=== PATIENT | male | born 2000 | race Caucasian/White ===

== ENCOUNTER 2020-04-13 13:50 | Emergency (ER) | payer MEDICAID ==
[~2020-04-13] VITALS: Ht 188 cm; Wt 67.9 kg
[~2020-04-13 13:50] MED LIST: NO HOME MEDS
--- NOTE | 2020-04-13 14:50 | NUR ---
Break relief for primary nurse. Pt is awaiting assessment by ED provider. Pt's [id number] phoned for an update. Patient gave verbal permission to speak with the Jfuvcpm-ok-rro Sang Niki. He left a phone number where he can be reached, .
[2020-04-13] MEDS ORDERED: LORazepam 1 MG tablet PO ONE (15:20)
--- NOTE | 2020-04-13 15:45 | NUR ---
PT CAME OVER FROM FAST TRACK. PT EXCORTED BY SERCUITY. PT CHANGED INTO GREEN SCRUBS AND UA WAS OBTAINED AND SENT. ATTEMPTED TO CALL MOM FOR PT HX BUT NO ONE ANSWERED THE PHONE
[2020-04-13 15:57] LABS: CLARITY,URINE CLEAR (Clear); COLOR,URINE YELLOW (Yellow); GLUCOSE, URINE NEGATIVE (Neg); KETONES,URINE NEGATIVE (Neg); LEUKOCYTE ESTERASE ,URINE NEGATIVE (Neg); NITRITES, URINE NEGATIVE (Neg); OCCULT BLOOD,URINE NEGATIVE (Neg); PROTEIN,URINE NEGATIVE (Neg); UROBILINOGEN,URINE 0.2 E.U/dL (0.2-1.0)
[2020-04-13 15:58] LABS: UA COLLECTION TYPE CLN CATCH MIDSTREAM
[2020-04-13 16:02] LABS: URINE AMPHETAMINE SCREEN NEGATIVE (Neg); URINE BARBITUATE SCREEN NEGATIVE (Neg); URINE BENZODIAZEPINES SCREEN NEGATIVE (Neg); URINE CANNABINOID SCREEN NEGATIVE (Neg); URINE COCAINE SCREEN NEGATIVE (Neg); URINE METHADONE SCREEN NEGATIVE (Neg); URINE OPIATE SCREEN NEGATIVE (Neg); URINE PHENCYCLIDINE SCREEN NEGATIVE (Neg)
--- NOTE | 2020-04-13 16:29 | NUR ---
PT HAS GIVEN VERBAL CONSENT TO SPEAK WITH MOTHER. MOM STATES PT HAS BEEN DX WITH [facility]. STARTED WHILE HE WAS A MINOR SO PATIENT WAS FOLLOWED BY [facility]. PT HAS NOT HAD ANY EPISODES IN 2 YEARS AND DURING THAT TIME PATIENT AGED OUT OF HIS MENTAL HEALTH PROVIDERS SERVICES NOW THAT HE IS 20 AND PT HAS NOT FOLLOWED UP WITH A NEW MENTAL HEALTH SERVICE. HOWEVER YESTERDAY MOM CALLED [facility] AND THEY CAME OUT AND SAW THE PATIENT SO CARE MAY HAVE BEEN STARTED. MOTHER STATES PT HAS NEVER USED DRUGS OR ALCOHOL. SHE STATES THE PATIENT STOPPED TAKING HIS MEDS CAUSE OF THE DROWSY SIDE EFFECTS. PT HAS A GREAT FAMILY SUPPORT SYSTEM AND THEY ARE WILLING TO HELP HIM ANYWAY POSSIBLE.
[2020-04-13 16:47] LABS: BASOPHILS % (AUTO) 0.6 % (0-1); EOSINOPHILS # (AUTO) 0.1 X10'3 (0-0.9); LYMPHOCYTES # (AUTO) 1.5 X10'3 (1.1-4.8); LYMPHOCYTES % (AUTO) 18.2 % (21-51); MEAN CORPUSCULAR HEMOGLOBIN 30.6 PG (27.0-31.0); MEAN PLATELET VOLUME 7.7 FL (7.4-10.4); MONOCYTES # (AUTO) 1.1 X10'3 (0-0.9); NEUTROPHILS # (AUTO) 5.6 X10'3 (1.8-7.7)
[2020-04-13 16:49] LABS: BASOPHILS # (AUTO) 0.1 X10'3 (0-0.2); HEMATOCRIT 46.1 % (42.0-52.0); MEAN CORPUSCULAR HGB CONC 34.8 g/dL (33.0-36.5); MEAN CORPUSCULAR VOLUME 87.9 FL (78-98); MONOCYTES % (AUTO) 13.4 % (2-12); NEUTROPHILS % (AUTO) 66.8 % (42-75); PLATELET COUNT 209 X10'3 (140-440); RED BLOOD COUNT 5.25 X10'6 (4.70-6.10); RED CELL DISTRIBUTION WIDTH 12.7 % (11.5-14.5); WHITE BLOOD COUNT 8.3 X10'3 (4.5-11.0)
[2020-04-13 16:58] LABS: ALANINE AMINOTRANSFERASE 33 U/L (12-78); ALBUMIN 4.5 G/DL (3.4-5.0); ALBUMIN/GLOBULIN RATIO 1.7 (1.1-1.5); ALKALINE PHOSPHATASE 71 IU/L (46-116); ANION GAP 10 (8-16); ASPARTATE AMINO TRANSFERASE 43 U/L (10-37); BILIRUBIN,TOTAL 1.2 MG/DL (0.1-1.0); BLOOD UREA NITROGEN 8 MG/DL (7-18); BUN/CREATININE RATIO 9.2 (5.4-32.0); CHLORIDE 103 MMOL/L (99-107); CREATININE 0.87 MG/DL (0.60-1.10); GLUCOSE 90 MG/DL (70-104); POTASSIUM 3.2 MMOL/L (3.5-5.1); SODIUM 143 MMOL/L (135-145); TOTAL PROTEIN 7.1 G/DL (6.4-8.2); eGFR > 90 ML/MIN
--- NOTE | 2020-04-13 16:59 | NUR ---
PT TOOK LITHIUM AND SEROQUEL. STOPPED TAKING THEM 3 MONTHS AGO
--- NOTE | 2020-04-13 17:00 | NUR ---
MOM CAN BE CONTACTED ANY TIME AT [phone]
[2020-04-13 17:06] LABS: ETHANOL < 0.010 GM/DL (0.0-0.010)
--- NOTE | 2020-04-13 17:51 | NUR ---
PACKET SENT TO [facility]
--- NOTE | 2020-04-13 18:06 | NUR ---
PT IS SLEEPING. NO CONCERNS AT THIS TIME
--- NOTE | 2020-04-13 19:35 | NUR ---
[facility] TO SEE PATIENT
--- NOTE | 2020-04-13 20:28 | NUR ---
PHONED MOTHER TO GET THE CORRECT DOSING FOR THE LITHIUM AND SERAQUEL DOSAGE MOM LATIA THAT SHE KNOWS PT TOOK 50MG OF SEERAQUEL DAAILY BUT VERBALIZED ASKING PATITENT HE WILL PROBABLY BE ABLE TO RECALL HIS DOSAGES,
--- NOTE | 2020-04-13 20:33 | NUR ---
PT WICHO KAY TO [facility]ARCH [facility] AT BEDSIDE NOW LYING IN BED SUPINE RESTING IN THE DIRECT LINE OF NURSING STAFF WILL CONTINUE TO MONITOR AND REASSESS NEEDED
--- NOTE | 2020-04-13 20:37 | NUR ---
SPOKE WITH PATIENT ABOUT HIS MEDICATION DOSEAGES PT STATED HE COULD NOT RECALL HOW MUCH OR HOW OFTEN HE WAS TAKING HIS MEDICATION . PT ASKED FOR A TURKEY SANDWITCH AND IS SITIN GIN BED WITH HOB ELEVATED 30 DEGREES HAVING HIS FOOD.
--- NOTE | 2020-04-13 21:30 | NUR ---
PT SITTING UP IN BED SRAWING AT THIS TIME IN THE DIRECT LINE OF SITE OF NURSING STAFF WILL CONTINE TO MONITOR AND REASSESS NEEDED PT DENIESFEELING ANY AGITATION AT THIS TIME STATED " IM DOING FINE RIGHT NOW "
--- NOTE | 2020-04-13 22:00 | NUR ---
PT UP OUT OF BED TO BATHROOM / REMAKING HIS BED FOLDING AND UNFOLDING LINEN ENCOURAGED PT TO GET SOME REST / ASKED PT IF HE NEEDED SOMETHING TO HELP SLEEP PT STATED THAT HE WOULD LIKE TO TAKE SOMETHING FOR SLEEP
--- NOTE | 2020-04-13 22:09 | NUR ---
DR QUINTANA NOTIFIED OF PT BEHAVIOR VERBAL ORDER GIVEN TO MEDICATE WITH 200 MG SERAQUEL NOW AND THEN DAILY
[2020-04-13] MEDS ORDERED: quetiapine 100mg tablet PO ONE (22:25)
--- NOTE | 2020-04-13 22:28 | NUR ---
REDIRECTED PATIENT BACK TO BED ENCOURAGED PT TO TRY AND REST AND REMINDED HIM HE HAS NOW HAD SOME MEDICATION TAHT SHOULD HELP HIM SLEEP . PT GIVEN A WORD SEARCH BOOK , HE STATED "TIFFANY COREA" FOLLOWED WITH " [facility] ALSO [facility] "
--- NOTE | 2020-04-13 23:30 | NUR ---
PT SITTING ON GROUND RESTING HIS HEAD ON THE BEAD. ASKED PT TO PUT HIMSELF BACK TO BED . PT BACK TO BED AND IS NOW RESTING SUPINE .
--- NOTE | 2020-04-14 00:51 | NUR ---
PT SLEEPING PEACFULLY SUPINE RESP EVEN UNLABORED WILL CONTINUE TO MONITOR AND REASSESS . PT IS IN THE DIRECT LINE OF SIGHT OF NURSING STAFF .
--- NOTE | 2020-04-14 01:31 | NUR ---
PT SLEEPING PEACFULLY ON HIS LEFT SIDE RR EVEN AND UNLABORED WILL CONTINUE TO MONITOR AND REASSESS
--- NOTE | 2020-04-14 02:30 | NUR ---
PT SLEEPING PEACFULLY SUPINE RR EVEN AND UNLABORED WILL CONTINUE TO MONITOR AND REASSESS
--- NOTE | 2020-04-14 03:30 | NUR ---
PT SLEEPING PEACFULLY ON HIS RIGHT SIDE RR EVEN AND UNLABORED WILL CONTINUE TO MONITOR AND REASSESS
--- NOTE | 2020-04-14 04:30 | NUR ---
PT SLEEPING PEACFULLY ON HIS RIGHT SIDE RR EVEN AND UNLABORED WILL CONTINUE TO MONITOR AND REASSESS
--- NOTE | 2020-04-14 05:45 | NUR ---
PT SLEEPING PEACFULLY SUPINE RR EVEN AND UNLABORED WILL CONTINUE TO MONITOR AND REASSESS
--- NOTE | 2020-04-14 06:45 | NUR ---
[facility] REPORT FROM [facility], ASSUMED CARE, PT SAT UP IN BED, LOOKED AT ME, I SAID GOOD MORNING AND WAVED AT HIM, HE WAVED BACK AND THEN LAID BACK DOWN
--- NOTE | 2020-04-14 07:16 | NUR ---
PT IS LAYING ON HIS LEFT SIDE, REGULAR BREATHING PRESENT, EYES CLOSED, SLEEPING
--- NOTE | 2020-04-14 08:01 | NUR ---
pt is supine in bed, eys closed, regular breathing observed, s;eeping
--- NOTE | 2020-04-14 08:15 | NUR ---
woke pt up for breakfast, he is sitting at bedside, eatting, calm, no agitation observed
--- NOTE | 2020-04-14 08:44 | NUR ---
pt was doing sit ups in bed, now on his knees in bed facing the wall, then got up and he's stretching
[2020-04-14] MEDS ORDERED: quetiapine 100mg tablet PO ONE ×2 (09:15→13:15)
[2020-04-14] MEDS ORDERED: quetiapine 100mg tablet PO SCH ×2 (09:15→21:00)
--- NOTE | 2020-04-14 09:20 | NUR ---
pt was becoming very animated, [facility] tech come over and discussed with provider Manpreet, obtained order, pt willing took medication with no issues
[2020-04-14] MEDS ORDERED: QUET150T2 PO (09:33)
[2020-04-14] MEDS ORDERED: LIT300C PO ×2 (09:35→09:39)
--- NOTE | 2020-04-14 09:58 | NUR ---
pt is still pacing around moving sheets from tray table to bed, and back again, remains calm but cannot sit still
--- NOTE | 2020-04-14 10:18 | NUR ---
pt went to use bathroom and came back to bed but lft the basin tap on purposely also clogged the basin whole with bunch of napkins,went to see the bathroom to close the tap ,saw water running out of sink and whole floor is all wet and flooded with water,napkins removed from the sink and called evs for cleaning.
--- NOTE | 2020-04-14 10:26 | NUR ---
pt sitting up in bed and smiling as evs is cleaning the water mess in restroom.
--- NOTE | 2020-04-14 10:55 | NUR ---
spoke to Rosa, RN at [facility], pt is being reviewed by provider and [facility] will get [facility] to us if accepted
--- NOTE | 2020-04-14 11:26 | NUR ---
pt is talking on the phone with his mom, he is still pacing, but calm
--- NOTE | 2020-04-14 12:17 | NUR ---
pt continues to pull sheets and pillows on and off the bed and pace around his bed
[2020-04-14] MEDS ORDERED: LORazepam 1 MG tablet PO ONE (12:55)
--- NOTE | 2020-04-14 13:18 | NUR ---
pt threw water at staff, security paged to standby, pt standing on bed, putting pillow case over head, wrapping blanket around neck, pt needs constant redirection, removed blankets and pillow case, pt now doing somersaults on bed, RN to discuss with provider, security continues to stand by
--- NOTE | 2020-04-14 13:20 | NUR ---
called pharmacy for new order for quatpine and ativian oral tab as pt threw and contaminated the previous meds,as per pharmacy come in 5 mins to lemon picker the meds from pharmacy.
--- NOTE | 2020-04-14 13:22 | NUR ---
pt behaviour escalated started jumping and flipping over bed ,picking up his side table ,will notify dr dover regarding pt condition.
[2020-04-14] MEDS ORDERED: diphenhydrAMINE 50 mg/ml inj IM ONE (13:25)
[2020-04-14] MEDS ORDERED: LORazepam 2 mg/ml vial IM ONE (13:25)
[2020-04-14] MEDS ORDERED: haloperidol lactate 5mg/ml inj IM ONE (13:25)
--- NOTE | 2020-04-14 13:28 | NUR ---
informed dr dover regarding pt agitated behaviour ,as per md he will order meds to help calm him down.
--- NOTE | 2020-04-14 13:40 | NUR ---
as per md order went to give ativian 2 mg,qutapine 200 mg .pt agreed to take it first but the took medicine cup fliped all 4 pills in water and threw it away and tossed to cup on my face then started flipping on the bed putting bedsheet around his neck and pillow case over his face.amanda womack called the security for standby,informed dr dover regarding pt condition, new orders from dr dover to give im shots.meds given to pt by er nurse amanda davies with help of security.
--- NOTE | 2020-04-14 13:45 | NUR ---
pt started yelling and screaming and punching johnson, when asked to stop, he told me to come at him/come get him, security was called and pt has been restrained, he is now calm
--- NOTE | 2020-04-14 14:44 | NUR ---
pt is supine, asleep and restrained, VSS
--- NOTE | 2020-04-14 15:09 | NUR ---
spoke with patient re: removing restraints, he agrees that he will turn around in the bed and lay down and rest for awhile, no jumping out of bed or pacin,. he agreed to rest, and was released from restraints without incident, will continue to monitor need for restraints
--- NOTE | 2020-04-14 15:52 | NUR ---
pt is resting on his left side eyes closed, asleep, regular breathing present
--- NOTE | 2020-04-14 16:52 | NUR ---
pt is supine in bed, resting, quiet, no agitation observed
--- NOTE | 2020-04-14 18:31 | NUR ---
Recieved pt in bed. He is resting and calm. During 1:1, pt denies A/VH, SI. States he is "Doing just fine" and agreeable to this RNs discussing upcoming HS medications. "That sounds okay." Pt requesting dinner and informed it would arrive shortly. Pt able to discuss that his family brought him in but lacks insight to his condition even though he is currently cooperating with POC. Behavior: Cooeprative, Calm; Mood: "Fine"; Affect: Flat, Denies Sx/Symptoms, Does not appear to be responding to internal stimuli; A&Ox4; Eye Contact: Intermittent; Insight: Poor; Judgement: Poor.
[2020-04-14] MEDS ORDERED: QUETIAPINE 150 MG TAB.SR.24H PO SCH (21:00)
[2020-04-14] MEDS ORDERED: lithium carbonate 300mg SR tablet (LithoBID) PO SCH (21:00)
--- NOTE | 2020-04-14 21:00 | NUR ---
Pt eating a snack post HS medication administration. Pt is calm and polite.
--- NOTE | 2020-04-14 23:18 | NUR ---
Pt sleeping soundly; no signs of distress.
--- NOTE | 2020-04-15 02:30 | NUR ---
Pt sleeping. Up to use the restroom, then returns to bed. No distress noted.
[2020-04-15 04:54] VITALS: BP 100/72
--- NOTE | 2020-04-15 05:06 | NUR ---
Pt sitting up in bed, facing the back wall. This RN checked in and pt stated "I just want it like a chair." Adjusted bed to pt liking, sitting quietly.
--- NOTE | 2020-04-15 06:51 | NUR ---
Patient is restless in room, but easily redirectable. Patient up to backroom to brush teeth.
[2020-04-15] MEDS ORDERED: lithium carbonate 300mg SR tablet (LithoBID) PO SCH (08:00)
--- NOTE | 2020-04-15 08:10 | NUR ---
Spoke with Dr. Worrell regarding patients Potassium level of 3.2 and if he would like to replace. Dr. Worrell gave verbal order for Kdur 20 mEq PO once now. Will place order and administer as prescribed.
[2020-04-15] MEDS ORDERED: potassium Cl 20 mEq SR tablet PO STA (08:16)
--- NOTE | 2020-04-15 08:34 | NUR ---
Patient ate 100% of his breakfast. He remains restless and is sitting on his bed, air drumming.
--- NOTE | 2020-04-15 08:45 | NUR ---
Patient reports he had a bowel movement. Denies issues or concerns.
--- NOTE | 2020-04-15 09:05 | NUR ---
CB called regarding possible admission, SBAR report given. Stated that they would present his case to the MD.
--- NOTE | 2020-04-15 09:15 | NUR ---
Spoke with patients mother regarding current status. Margie would like staff to call when and/or if patient will be transfered.
--- NOTE | 2020-04-15 09:36 | NUR ---
Patient up out of bed coloring at this time.
--- NOTE | 2020-04-15 09:51 | NUR ---
Patient is restless, continues to pace in room. Patient is appropriate and redirectible when needed. Patient given markers to color with and intermittent comes back to drawing. Patient requested glass of water to drink at which was given and patient drank entire pitcher of water. Patient intermittently walking up to counter to show staff art work.
--- NOTE | 2020-04-15 11:46 | NUR ---
received phone call from [facility] office that patient has been accepted at [facility]. Explained this to patient, questions were answered and patient verbalized un Addendum: 04/15/20 at 1147 by CAMILA patient verbalized understanding. Patient is seen turning on his light and then turning it off as well as playing air guitar. This RN asked if the patient would like to listen to music and patient states, "I already am. I got to play the egg shaker on my [id number]'s song. It was fun". Patient is now resting in bed peacefully.
--- NOTE | 2020-04-15 12:36 | NUR ---
Breaking primary RN. Patient is observed sitting backwards on his bed, back facing the nurse's station. When asked if he is OK he states, "I am just realizing something." Patient is now sitting in the high fowlers position. He still exhibits some bizarre behavior but he is easily redirectable.
--- NOTE | 2020-04-15 13:27 | NUR ---
Pt is awaiting transfer to [facility] for admission and further evaluation for mental health.
--- NOTE | 2020-04-15 13:34 | NUR ---
Ambulatory to the restroom. Pt ate all of his lunch without difficulty.
[2020-04-19] MEDS ORDERED: LIT300C PO (11:41)
[2020-04-19] MEDS ORDERED: QUET100T33 PO (11:41)
== END 2020-04-15 13:40 ==
LOC: ER 13:52
DX: F31.9 Bipolar disorder, unspecified (principal); F20.9 Schizophrenia, unspecified; F41.9 Anxiety disorder, unspecified; Z72.89 Other problems related to lifestyle; Z59.0 Homelessness; Z56.0 Unemployment, unspecified; Z79.899 Other long term (current) drug therapy
CPT/HCPCS: 36415; 80053; 80178; 80305; 80320; 81003; 84443; 85025; 96372; 99285; J1200; J1630; J2060

== ENCOUNTER 2021-06-13 22:48 | Emergency (ER) | payer MEDICAID ==
[~2021-06-13] VITALS: Ht 182.9 cm; Wt 73.2 kg
[~2021-06-13 22:48] MED LIST changes: +LIT300C PO; -NO HOME MEDS; +QUET100T33 PO
[2021-06-14] MEDS ORDERED: BENZ0.5T43 PO (02:32)
[2021-06-14] MEDS ORDERED: PROP10TA10 PO (02:33)
[2021-06-14] MEDS ORDERED: QUET-1 PO (02:34)
[2021-06-14] MEDS ORDERED: diphenhydrAMINE 25mg capsule PO ONE (02:50)
[2021-06-14] MEDS ORDERED: OLANZapine 5mg rapidly disint. tablet PO ONE (02:50)
[2021-06-14] MEDS ORDERED: quetiapine 100mg tablet PO ONE (02:50)
[2021-06-14 03:34] VITALS: BP 119/83
== END 2021-06-14 03:38 | disposition home or self-care (01) ==
LOC: ER 22:49
DX: G47.00 Insomnia, unspecified (principal); F23 Brief psychotic disorder; F25.9 Schizoaffective disorder, unspecified; Z59.0 Homelessness; Z79.899 Other long term (current) drug therapy
CPT/HCPCS: 99284; Q0163